=== PATIENT | female | born 1995 | race Hispanic/Latino ===

== ENCOUNTER 2023-02-17 19:12 | Emergency (ER) | payer OTHER ==
[~2023-02-17] VITALS: Ht 152.4 cm; Wt 53.1 kg
[2023-02-17] MEDS ORDERED: KETOROLAC TROMETHAMINE 30 MG/ML VIAL IV STA (20:04)
[2023-02-17 21:25] LABS: CLARITY,URINE CLEAR (CLEAR); COLOR,URINE YELLOW (YELLOW); KETONES,URINE 1+ (NEGATIVE); LEUKOCYTE ESTERASE ,URINE NEGATIVE (NEGATIVE); NITRITE,URINE NEGATIVE (NEGATIVE); PROTEIN,URINE DIPSTICK NEGATIVE (NEGATIVE); URINE UROBILINOGEN 0.2 mg/dL (0.2 - 1)
[2023-02-17 21:39] LABS: BACTERIA,URINE MODERATE /HPF; EPITHELIAL CELLS,URINE MANY /LPF; WBC,URINE (MAN) 0-5 /HPF (0-5)
[2023-02-18 01:03] VITALS: BP 115/73; PULSE 72; RESP 17; TEMP 98.6; O2SAT 100
== END 2023-02-18 01:04 | disposition home or self-care (01) ==
LOC: ER 19:25
DX: N94.6 Dysmenorrhea, unspecified (principal)
CPT/HCPCS: 76856; 81001; 81025; 99283